=== PATIENT | male | born 1995 | race Caucasian/White ===

== ENCOUNTER → 2020-03-19 | Emergency (ER) | payer OTHER ==
[~2020-03-19] VITALS: Ht 175.3 cm; Wt 63.5 kg
== END | disposition designated cancer center or children's hospital (05) ==
LOC: ER 19:40 → EDSEX 19:48
DX: S61.422A Laceration with foreign body of left hand, initial encounter (principal); S71.112A Laceration without foreign body, left thigh, initial encounter; X94.0XXA Assault by shotgun, initial encounter; Y93.89 Activity, other specified; Y92.89 Other specified places as the place of occurrence of the external cause; Y99.8 Other external cause status